=== PATIENT | male | born 1965 | race Caucasian/White ===

== ENCOUNTER 2019-03-03 18:42 | Emergency (ER) | payer OTHER ==
[~2019-03-03] VITALS: Ht 172.7 cm; Wt 109.0 kg
[2019-03-03 18:48] VITALS: Ht 172.7 cm; Wt 109.0 kg
--- NOTE | 2019-03-03 22:09 | ERD ---
ER Documentation Chief Complaint Chief Complaint bib ra [phone] for s/i , patient has plan for cutting, came from [facility] Patient is a 53-year-old male with schizophrenia who presents saying "I want to slice my neck". He was brought in by ambulance. He said this feeling started this morning because "I cannot find my dad". He is taking psychiatric medications like he is supposed to. He does have a depressed affect. Upon review of old medical records this is the patient's first visit to the emergency department. ROS All systems reviewed and are negative except as per history of present illness. Allergies Allergies: Coded Allergies: No Known Allergy (Unverified , 03/03/19) PMhx/Soc Hx Psychiatric Problems: Yes (SCHIZOPHERNIA) Hx Miscellaneous Medical Probl: No Hx Alcohol Use: Yes Hx Substance Use: Yes (MARIJUANA) Hx Tobacco Use: Yes Smoking Status: Current every day smoker FmHx Family History: diabetes Physical Exam Vitals Vital Signs Date Temp Pulse Resp B/P (MAP) Pulse Ox O2 O2 Flow FiO2 Time Delivery Rate 03/03/19 88 20 130/88 98 Room Air 20:37 (102) 03/03/19 78 19 124/77 99 Room Air 19:40 (93) 03/03/19 98.7 100 19 130/90 100 18:48 (103) Physical Exam Const: No acute distress Head: Atraumatic Eyes: Normal Conjunctiva ENT: Normal External Ears, Nose and Mouth. Neck: Full range of motion. No meningismus. Resp: Clear to auscultation bilaterally Cardio: Regular rate and rhythm, no murmurs Abd: Soft, non tender, non distended. Normal bowel sounds Skin: No petechiae or rashes Back: No midline or flank tenderness Ext: No cyanosis, or edema Neur: Awake and alert Psych: Depressed affect, positive for suicidal ideation with plan to slice neck Result Diagram: 03/03/19191603/03/191916 Results 24 hrs Laboratory Tests Test 03/03/19 19:17 White Blood Count 6.1 10^3/ul Red Blood Count 5.18 10^6/ul Hemoglobin 16.6 g/dl Hematocrit 48.2 % Mean Corpuscular Volume 93.1 fl Mean Corpuscular Hemoglobin 32.0 pg Mean Corpuscular Hemoglobin Concent 34.4 g/dl Red Cell Distribution Width 13.2 % Platelet Count 177 10^3/UL Mean Platelet Volume 9.9 fl Immature Granulocytes % 0.200 % Neutrophils % 57.5 % Lymphocytes % 30.1 % Monocytes % 8.4 % Eosinophils % 3.5 % Basophils % 0.3 % Nucleated Red Blood Cells % 0.0 /100WBC Immature Granulocytes # 0.010 10^3/ul Neutrophils # 3.5 10^3/ul Lymphocytes # 1.8 10^3/ul Monocytes # 0.5 10^3/ul Eosinophils # 0.2 10^3/ul Basophils # 0.0 10^3/ul Nucleated Red Blood Cells # 0.0 10^3/ul Sodium Level 144 mmol/L Potassium Level 4.0 mmol/L Chloride Level 108 mmol/L Carbon Dioxide Level 26 mmol/L Anion Gap 10 Blood Urea Nitrogen 16 mg/dl Creatinine 0.85 mg/dl Est Glomerular Filtrat Rate mL/min > 60 mL/min Glucose Level 118 mg/dl Calcium Level 10.0 mg/dl Total Bilirubin 0.7 mg/dl Direct Bilirubin 0.00 mg/dl Indirect Bilirubin 0.7 mg/dl Aspartate Amino Transf (AST/SGOT) 29 IU/L Alanine Aminotransferase (ALT/SGPT) 29 IU/L Alkaline Phosphatase 83 IU/L Total Protein 8.3 g/dl Albumin 4.8 g/dl Globulin 3.50 g/dl Albumin/Globulin Ratio 1.37 Salicylates Level < 1.0 mg/dl Acetaminophen Level < 10.0 ug/ml Ethyl Alcohol Level < 10.0 mg/dl Procedures/MDM Smoking Cessation Therapy: Pt. was lectured for greater than 3 minutes on the health risks of continued smoking and the benefits of cessation. Patient is a 53-year-old male who presents with suicidal ideation with plan. He is medically cleared at this time. He is awaiting psychiatric evaluation for consultation. He may require transfer for psychiatric admission based on the consultation by psychiatry. He will be signed out to the oncoming physician. Departure Diagnosis: Primary Impression: Suicidal ideation Condition: VERO Oakes MD March 03, 2019 22:09
--- NOTE | 2019-03-03 22:20 | PSY ---
Date/Time of Note Date/Time of Note DATE: 03/04/19 TIME: 07:00 Psychiatric Subjective Eval Consent Pt consented to telemedicine: Yes Subjective Evaluation Patient location: emergency Chief Complaint: bib ra 881 for s/i , patient has plan for cutting, came from [facility] Reason for consult: suicidal ideation History of present illness Mr. Cabezas is a 53 yo man with an apparent history of chronic schizophrenia, who was BIB EMS from his [facility]" with concerns for SI and plans to cut his throat. On interview, Mr. Cabezas, who appears to have cognitive deficits, says that he is here because he wants to kill himself by cutting his throat. He says that he will do this "sooner or later". When asked why he says that he wants to find his father. He then volunteers that he "smoked pot" yesterday and can't feel his penis. He says that he is afraid of the color of the floor. He denies recent medication changes. He says that he has lived in his current facility for the past year. He denies acute stressors. Past psychiatric history schizophrenia, treated with risperidone 2 mg qam, 4 mg qhs, haldol 5 mg bid, benadryl, citalopram 20 mg daily Hospitalization: yes Family History non contributory Medical history see chart Allergies: Coded Allergies: No Known Allergy (Unverified , 03/03/19) Substance Abuse Substance use: other (UDS pending, pt says that he used MJ yesterday) Psychiatric Objective Eval Review of Systems: Review of Systems: Not Applicable Physical Examination: Physical Examination: Not Applicable Mental Status Examination: Appearance: Other (fair GH) Eye Contact: Poor Psychomotor Activity: Other (restless, pacing) Behavior: Guarded Speech: Monotone, Slowed, Other (slow rate, few simple worse, childlike tone) AFFECT: Blunt Mood: Anxious Though Process: Tangential, Circumstantial Thought Content: Delusions Suicidal: Yes Homicidal: No On 72 hour hold: No Cognition: Alert Insight: Impared Judgement: Impared Attention Span: Distractible Laboratory Results Laboratory Tests Test 03/03/19 19:17 White Blood Count 6.1 10^3/ul Red Blood Count 5.18 10^6/ul Hemoglobin 16.6 g/dl Hematocrit 48.2 % Mean Corpuscular Volume 93.1 fl Mean Corpuscular Hemoglobin 32.0 pg Mean Corpuscular Hemoglobin Concent 34.4 g/dl Red Cell Distribution Width 13.2 % Platelet Count 177 10^3/UL Mean Platelet Volume 9.9 fl Immature Granulocytes % 0.200 % Neutrophils % 57.5 % Lymphocytes % 30.1 % Monocytes % 8.4 % Eosinophils % 3.5 % Basophils % 0.3 % Nucleated Red Blood Cells % 0.0 /100WBC Immature Granulocytes # 0.010 10^3/ul Neutrophils # 3.5 10^3/ul Lymphocytes # 1.8 10^3/ul Monocytes # 0.5 10^3/ul Eosinophils # 0.2 10^3/ul Basophils # 0.0 10^3/ul Nucleated Red Blood Cells # 0.0 10^3/ul Sodium Level 144 mmol/L Potassium Level 4.0 mmol/L Chloride Level 108 mmol/L Carbon Dioxide Level 26 mmol/L Anion Gap 10 Blood Urea Nitrogen 16 mg/dl Creatinine 0.85 mg/dl Est Glomerular Filtrat Rate mL/min > 60 mL/min Glucose Level 118 mg/dl Calcium Level 10.0 mg/dl Total Bilirubin 0.7 mg/dl Direct Bilirubin 0.00 mg/dl Indirect Bilirubin 0.7 mg/dl Aspartate Amino Transf (AST/SGOT) 29 IU/L Alanine Aminotransferase (ALT/SGPT) 29 IU/L Alkaline Phosphatase 83 IU/L Total Protein 8.3 g/dl Albumin 4.8 g/dl Globulin 3.50 g/dl Albumin/Globulin Ratio 1.37 Salicylates Level < 1.0 mg/dl Acetaminophen Level < 10.0 ug/ml Ethyl Alcohol Level < 10.0 mg/dl Assessment and Plan Assessment/Diagnosis Diagnosis Pt is presenting with an apparent acute exacerbation of chronic schizophrenia, the cause of which is currently no clear. He is expressing SI with intent. He is disorganized and delusional. Psychiatric hospitalization is indicated for safety, stabilization, further assessment. Recommendation/Plan Medication Management Continue current home medications. Start ativan 1 mg po q4hrs as needed for anxiety, restlessness; NTE 4 mg/24hrs Multiple antipsychotics: Yes (home medications) Discharge Disposition: Psychiatric inpatient Legal Status: Place involuntary hold (pt is disorganized, delusional and expressing SI with intent. ) VERENA GRIFFITHS MD March 03, 2019 22:13
[2019-03-04] MEDS ORDERED: HALO5TAB23 PO (01:28)
[2019-03-04] MEDS ORDERED: DIPH25CA6 PO (01:28)
[2019-03-04] MEDS ORDERED: LORAZEPAM 1 MG TAB PO PRN (17:30)
[2019-03-05 13:14] VITALS: BP 128/87; PULSE 64; RESP 17
== END 2019-03-05 16:33 ==
LOC: E/R 18:42
DX: R45.851 Suicidal ideations (principal); F17.210 Nicotine dependence, cigarettes, uncomplicated
CPT/HCPCS: 80053; 80307; 81003; 85025; Z7502; Z7610